=== PATIENT | female | born 1955 | race Caucasian/White ===

== ENCOUNTER → 2018-06-12 10:30 | Outpatient (CLI) | payer MEDICARE, SELFPAY | PROVIDERS: PCP Family Medicine; Visit Provider Psychiatry & Neurology Neurology | DX: G43.909 Migraine, unspecified, not intractable, without status migrainosus (principal) | CPT/HCPCS: 99213 ==

== ENCOUNTER 2018-10-16 08:55 | Outpatient (CLI) | payer MEDICARE, SELFPAY ==
[2018-10-16 11:42] LABS: FREE T4 1.46 ng/dL (0.76-1.46)
[2018-10-16 12:08] LABS: VALPROIC ACID 21.7 ug/mL (50-100)
[2018-10-18 00:05] LABS: Vitamin D 25 Total 48.5 ng/ml (30-100)
== END 2018-10-16 09:15 ==
PROVIDERS: PCP Family Medicine; Visit Provider Family Medicine
DX: G40.909 Epilepsy, unspecified, not intractable, without status epilepticus (principal); Z51.81 Encounter for therapeutic drug level monitoring; E55.9 Vitamin D deficiency, unspecified; F41.9 Anxiety disorder, unspecified
CPT/HCPCS: 36415; 82306; 80164; 84439

== ENCOUNTER → 2018-12-31 08:48 | Outpatient (BNVA) | payer OTHER, SELFPAY | PROVIDERS: PCP Family Medicine; Visit Provider Psychiatry & Neurology Neurology | DX: G43.719 Chronic migraine without aura, intractable, without status migrainosus (principal); R42 Dizziness and giddiness | CPT/HCPCS: 99214 ==

== ENCOUNTER 2019-01-02 09:09 | Outpatient (CLI) | payer OTHER, SELFPAY ==
[2019-01-02 11:06] LABS: Cholesterol 163 mg/dL (50-200); Glucose 147 mg/dL (70-100); HDL Cholesterol 35 mg/dL (40-60); LDL CHOLESTEROL 103 mg/dL (<100); Triglyceride 143 mg/dL (30-150)
== END 2019-01-02 09:29 ==
PROVIDERS: PCP Family Medicine; Visit Provider Family Medicine
DX: E66.3 Overweight (principal); R42 Dizziness and giddiness
CPT/HCPCS: 36415; 80061; 82947; 83721

== ENCOUNTER → 2019-03-11 10:35 | Outpatient (BNVA) | payer OTHER, SELFPAY | PROVIDERS: PCP Family Medicine; Visit Provider Psychiatry & Neurology Neurology | DX: G43.719 Chronic migraine without aura, intractable, without status migrainosus (principal); R42 Dizziness and giddiness; M54.2 Cervicalgia; Z87.820 Personal history of traumatic brain injury | CPT/HCPCS: 99213 ==

== ENCOUNTER 2019-04-04 11:32 | Outpatient (CLI) | payer OTHER, SELFPAY ==
[2019-04-04 13:15] LABS: Hemoglobin A1C 7.3 % (4.5-6.2)
== END 2019-04-04 11:52 ==
PROVIDERS: PCP Family Medicine; Visit Provider Family Medicine
DX: R73.9 Hyperglycemia, unspecified (principal)
CPT/HCPCS: 36415; 83036

== ENCOUNTER → 2019-04-24 12:26 | Outpatient (BNVA) | payer OTHER, SELFPAY | PROVIDERS: PCP Family Medicine; Visit Provider Psychiatry & Neurology Neurology | DX: G43.719 Chronic migraine without aura, intractable, without status migrainosus (principal); R42 Dizziness and giddiness; M54.2 Cervicalgia; Z87.820 Personal history of traumatic brain injury | CPT/HCPCS: 99214 ==

== ENCOUNTER → 2019-04-29 11:12 | Outpatient (BNVA) | payer OTHER, SELFPAY | PROVIDERS: PCP Family Medicine; Visit Provider Nurse Practitioner Adult Health | DX: G43.909 Migraine, unspecified, not intractable, without status migrainosus (principal); G43.109 Migraine with aura, not intractable, without status migrainosus; Z71.89 Other specified counseling | CPT/HCPCS: 99211; 99212 ==

== ENCOUNTER → 2019-05-14 12:18 | Outpatient (BNVA) | payer OTHER, SELFPAY | PROVIDERS: PCP Family Medicine; Visit Provider Psychiatry & Neurology Neurology | DX: G43.901 Migraine, unspecified, not intractable, with status migrainosus (principal) | CPT/HCPCS: 64405 ==

== ENCOUNTER → 2019-06-16 12:25 | Outpatient (BNVA) | payer MEDICARE, SELFPAY | PROVIDERS: PCP Family Medicine; Visit Provider Nurse Practitioner Adult Health | DX: G43.901 Migraine, unspecified, not intractable, with status migrainosus (principal) | CPT/HCPCS: 64405 ==

== ENCOUNTER → 2019-07-03 12:28 | Outpatient (BNVA) | payer MEDICARE, SELFPAY | PROVIDERS: PCP Family Medicine; Visit Provider Psychiatry & Neurology Neurology | DX: G43.719 Chronic migraine without aura, intractable, without status migrainosus (principal); M54.2 Cervicalgia; R42 Dizziness and giddiness; G43.901 Migraine, unspecified, not intractable, with status migrainosus; E11.9 Type 2 diabetes mellitus without complications; Z79.84 Long term (current) use of oral hypoglycemic drugs | CPT/HCPCS: 64405; 99214 ==

== ENCOUNTER → 2019-08-04 12:12 | Outpatient (BNVA) | payer MEDICARE, SELFPAY | PROVIDERS: PCP Family Medicine; Referring Provider Family Medicine; Visit Provider Psychiatry & Neurology Neurology | DX: G43.719 Chronic migraine without aura, intractable, without status migrainosus (principal); M54.2 Cervicalgia; R42 Dizziness and giddiness; M79.671 Pain in right foot; M79.672 Pain in left foot; E11.9 Type 2 diabetes mellitus without complications; Z79.84 Long term (current) use of oral hypoglycemic drugs | CPT/HCPCS: 99214 ==

== ENCOUNTER 2019-08-13 09:13 | Outpatient (CLI) | payer MEDICARE, SELFPAY ==
[2019-08-13 13:20] LABS: Anion Gap 9.7 mmol/L (3-11); CO2 26.3 mmol/L (21.0-32.0); CREATININE 0.94 mg/dL (0.55-1.02); Chloride 105 mmol/L (98-107); Estimated GFR 59.58 (mL/min/1.73m2); Potassium 4.9 mmol/L (3.5-5.1); Sodium 141 mmol/L (136-145)
[2019-08-13 13:22] LABS: Hemoglobin A1C 6.4 % (4.5-6.2)
== END 2019-08-13 09:33 ==
PROVIDERS: PCP Family Medicine; Visit Provider Family Medicine
DX: E11.9 Type 2 diabetes mellitus without complications (principal)
CPT/HCPCS: 36415; 80051; 82565; 83036

== ENCOUNTER 2020-01-06 08:07 | Outpatient (CLI) | payer OTHER, SELFPAY ==
[2020-01-06 12:36] LABS: Abs Immature Grans 0.01 k/cumm (0.0-0.09); Absolute Basophil Count 0.05 k/cumm (0.0-0.2); Absolute Eosinophil Count 0.37 k/cumm (0.0-0.7); Absolute Lymphocyte Count 2.34 k/cumm (1.2-3.4); Absolute Monocyte Count 0.71 k/cumm (0.11-0.7); Absolute Neutrophil Count 5.31 k/cumm (1.2-6.7); Basophils % 0.6; Eosinophils % 4.2; HCT 36.9 % (36.0-46.0); Immature Grans % 0.1 %; Lymphocytes % 26.6; Mean Corp. HGB Concentration 32.5 g/dL (32.0-36.0); Mean Corpuscular Hemoglobin 29.1 pg (27.0-33.0); Mean Corpuscular Volume 89.3 fL (80-95); Mean Platelet Volume 9.9 fL (8.0-11.0); Monocytes % 8.1; Neutrophils % 60.4; Platelet Count 373 x1000/uL (130-400); RBC 4.13 m/cumm (4.00-5.20); RBC Distribution Width 14.2 % (11.7-14.6); White Blood Cell Count 8.79 k/cumm (4.4-10.8)
[2020-01-06 12:45] LABS: COMMENT (LAB VIEW ONLY) 147.39 mg/dL; Microalb ug/mg Crea 4.4 ug/mg Cr
[2020-01-06 12:52] LABS: Hemoglobin A1C 6.4 % (3.8-5.6)
== END 2020-01-06 08:27 ==
PROVIDERS: PCP Family Medicine; Visit Provider Family Medicine
DX: E11.65 Type 2 diabetes mellitus with hyperglycemia (principal); D64.9 Anemia, unspecified
CPT/HCPCS: 36415; 82043; 82570; 83036; 85025

== ENCOUNTER → 2020-02-03 07:35 | Outpatient (BNVA) | payer OTHER, SELFPAY | PROVIDERS: PCP Family Medicine; Referring Provider Family Medicine; Visit Provider Psychiatry & Neurology Neurology | DX: G43.719 Chronic migraine without aura, intractable, without status migrainosus (principal); M54.2 Cervicalgia; R42 Dizziness and giddiness; G43.909 Migraine, unspecified, not intractable, without status migrainosus; E11.9 Type 2 diabetes mellitus without complications | CPT/HCPCS: 99213; 99442 ==

== ENCOUNTER 2020-04-09 11:48 | Outpatient (CLI) | payer OTHER, SELFPAY ==
[2020-04-10 02:44] LABS: COVID-19 RT-PCR UVMMC Result Negative (Negative)
== END 2020-04-09 12:08 ==
PROVIDERS: PCP Family Medicine; Visit Provider Family Medicine
DX: R50.9 Fever, unspecified (principal)
CPT/HCPCS: U0003

== ENCOUNTER → 2020-05-12 13:38 | Outpatient (BNVA) | payer OTHER, SELFPAY | PROVIDERS: PCP Family Medicine; Referring Provider Family Medicine; Visit Provider Psychiatry & Neurology Neurology | DX: G43.719 Chronic migraine without aura, intractable, without status migrainosus (principal); M54.2 Cervicalgia; R42 Dizziness and giddiness | CPT/HCPCS: 99213; 99442 ==

== ENCOUNTER 2020-06-02 04:06 | Outpatient (CLI) | payer OTHER, SELFPAY ==
[2020-06-02 12:58] LABS: TSH (W/Ref FT4) 0.08 uIU/mL (0.36-3.74)
[2020-06-02 13:34] LABS: FREE T4 1.52 ng/dL (0.76-1.46)
== END 2020-06-02 04:26 ==
PROVIDERS: PCP Family Medicine; Visit Provider Family Medicine
DX: E03.9 Hypothyroidism, unspecified (principal)
CPT/HCPCS: 36415; 84439; 84443

== ENCOUNTER → 2020-08-11 09:15 | Outpatient (BNVA) | payer OTHER, SELFPAY | PROVIDERS: PCP Family Medicine; Referring Provider Family Medicine; Visit Provider Psychiatry & Neurology Neurology | DX: G43.719 Chronic migraine without aura, intractable, without status migrainosus (principal); M54.2 Cervicalgia; R42 Dizziness and giddiness | CPT/HCPCS: 99213; 99442 ==

== ENCOUNTER 2020-09-07 17:52 | Outpatient (REF) | payer OTHER, SELFPAY ==
[2020-09-12 13:01] LABS: SARS-CoV-2 RNA Undetected (Undetected); SARS-CoV-2 Specimen Source Nasopharynx
== END 2020-09-07 18:12 ==
LOC: LBN 17:52
PROVIDERS: PCP Family Medicine; Visit Provider Nurse Practitioner Family
DX: R06.02 Shortness of breath (principal); J06.9 Acute upper respiratory infection, unspecified
CPT/HCPCS: 87449; U0003

== ENCOUNTER → 2020-11-10 10:34 | Outpatient (BNVA) | payer OTHER, SELFPAY | PROVIDERS: PCP Family Medicine; Referring Provider Family Medicine; Visit Provider Psychiatry & Neurology Neurology | DX: G43.719 Chronic migraine without aura, intractable, without status migrainosus (principal); M54.2 Cervicalgia; R42 Dizziness and giddiness; Z91.81 History of falling | CPT/HCPCS: 99443 ==

== ENCOUNTER → 2021-01-03 12:18 | Outpatient (BNVA) | payer OTHER, SELFPAY | PROVIDERS: PCP Family Medicine; Referring Provider Family Medicine; Visit Provider Psychiatry & Neurology Neurology | DX: E11.40 Type 2 diabetes mellitus with diabetic neuropathy, unspecified (principal); G43.719 Chronic migraine without aura, intractable, without status migrainosus; M54.2 Cervicalgia; R42 Dizziness and giddiness | CPT/HCPCS: 99215 ==

== ENCOUNTER 2021-01-07 01:41 | Outpatient (CLI) | payer OTHER, SELFPAY ==
[2021-01-07 13:21] LABS: Hemoglobin A1C 6.5 % (<5.7)
[2021-01-07 13:23] LABS: FREE T4 1.74 ng/dL (0.76-1.46)
[2021-01-07 13:24] LABS: Vitamin B12 643 pg/mL (193-986)
[2021-01-10 12:46] LABS: Albumin 55.7 % (55.8-66.1); Total Protein 6.9 g/dL (6.3-8.2)
== END 2021-01-07 01:42 | disposition home or self-care (01) ==
LOC: LOS 01:41
PROVIDERS: Psychiatry & Neurology Neurology; PCP Family Medicine; Visit Provider Family Medicine
DX: E03.9 Hypothyroidism, unspecified (principal); G62.9 Polyneuropathy, unspecified; R73.09 Other abnormal glucose
CPT/HCPCS: 36415; 82607; 83036; 84165; 84439; 84443

== ENCOUNTER → 2021-03-07 07:49 | Outpatient (BNVA) | payer OTHER, SELFPAY | PROVIDERS: PCP Family Medicine; Referring Provider Family Medicine; Visit Provider Psychiatry & Neurology Neurology | DX: G62.9 Polyneuropathy, unspecified (principal); E11.40 Type 2 diabetes mellitus with diabetic neuropathy, unspecified; G43.719 Chronic migraine without aura, intractable, without status migrainosus; M54.2 Cervicalgia; R42 Dizziness and giddiness | CPT/HCPCS: 99443 ==

== ENCOUNTER 2021-06-29 13:26 | Outpatient (REF) | payer OTHER, SELFPAY ==
[2021-06-30 15:49] LABS: COVID-19 RT-PCR UVMMC Result Negative (Negative)
== END 2021-06-29 13:27 | disposition home or self-care (01) ==
LOC: LBN 13:26
PROVIDERS: PCP Family Medicine; Visit Provider Family Medicine
DX: Z20.822 Contact with and (suspected) exposure to COVID-19 (principal)
CPT/HCPCS: U0003

== ENCOUNTER 2021-07-05 04:27 | Outpatient (CLI) | payer OTHER, SELFPAY ==
[2021-07-05 12:46] LABS: Hemoglobin A1C 6.9 % (<5.7)
[2021-07-05 13:13] LABS: Anion Gap 10.7 mmol/L (3-11); BUN 26 mg/dL (7-18); CO2 26.3 mmol/L (21.0-32.0); Calcium 9.4 mg/dL (8.5-10.1); Calculated LDL 88 mg/dL (<100); Chloride 103 mmol/L (98-107); Cholesterol 159 mg/dL (<200); Estimated GFR 55.14 (mL/min/1.73m2); Glucose 133 mg/dL (74-106); HDL Cholesterol 35 mg/dL (40-60); Potassium 4.6 mmol/L (3.5-5.1); Sodium 140 mmol/L (136-145); TSH (W/Ref FT4) 0.13 uIU/mL (0.36-3.74); Triglyceride 182 mg/dL (<150)
[2021-07-05 13:39] LABS: FREE T4 1.55 ng/dL (0.76-1.46)
[2021-07-06 11:17] LABS: Lyme Ab w Rflx to Lyme Confirm Negative (Negative)
== END 2021-07-05 04:28 | disposition home or self-care (01) ==
LOC: LOS 04:28
PROVIDERS: PCP Family Medicine; Visit Provider Family Medicine
DX: E78.5 Hyperlipidemia, unspecified (principal); E11.9 Type 2 diabetes mellitus without complications; E03.9 Hypothyroidism, unspecified; E87.1 Hypo-osmolality and hyponatremia; W57.XXXA Bitten or stung by nonvenomous insect and other nonvenomous arthropods, initial encounter; T14.8XXA Other injury of unspecified body region, initial encounter
CPT/HCPCS: 36415; 80048; 80061; 83036; 84439; 84443; 86618

== ENCOUNTER → 2021-08-03 10:45 | Outpatient (BNVA) | payer OTHER, SELFPAY | PROVIDERS: PCP Family Medicine; Referring Provider Family Medicine; Visit Provider Psychiatry & Neurology Neurology | DX: E11.40 Type 2 diabetes mellitus with diabetic neuropathy, unspecified (principal); M54.2 Cervicalgia; R42 Dizziness and giddiness; G43.719 Chronic migraine without aura, intractable, without status migrainosus | CPT/HCPCS: 99213; 99443 ==

== ENCOUNTER → 2021-12-15 10:08 | Outpatient (BNVA) | payer MEDICARE, SELFPAY | PROVIDERS: PCP Family Medicine; Referring Provider Family Medicine; Visit Provider Psychiatry & Neurology Neurology | DX: G43.719 Chronic migraine without aura, intractable, without status migrainosus (principal); E11.9 Type 2 diabetes mellitus without complications; G62.9 Polyneuropathy, unspecified | CPT/HCPCS: 99443 ==

== ENCOUNTER 2022-01-19 03:30 | Outpatient (CLI) | payer MEDICARE, SELFPAY | END 2022-01-19 03:31 | disposition home or self-care (01) | LOC: LBO 03:30 | PROVIDERS: PCP Family Medicine; Visit Provider Family Medicine ==

== ENCOUNTER 2022-04-17 09:17 | Outpatient (CLI) | payer MEDICARE, SELFPAY ==
[2022-04-17 10:03] LABS: TSH (W/Ref FT4) 0.45 uIU/mL (0.36-3.74)
== END 2022-04-17 09:18 | disposition home or self-care (01) ==
LOC: LBO 09:20
PROVIDERS: PCP Family Medicine; Visit Provider Family Medicine
DX: E03.9 Hypothyroidism, unspecified (principal)
CPT/HCPCS: 36415; 84443

== ENCOUNTER → 2022-04-24 10:52 | Outpatient (BNVA) | payer MEDICARE, MEDICAID, SELFPAY | PROVIDERS: PCP Family Medicine; Referring Provider Family Medicine; Visit Provider Psychiatry & Neurology Neurology | DX: G43.719 Chronic migraine without aura, intractable, without status migrainosus (principal); F41.9 Anxiety disorder, unspecified; R42 Dizziness and giddiness; G62.9 Polyneuropathy, unspecified; M54.2 Cervicalgia; G89.29 Other chronic pain; E11.9 Type 2 diabetes mellitus without complications | CPT/HCPCS: 99215 ==

== ENCOUNTER → 2022-06-07 09:07 | Outpatient (BNVA) | payer MEDICARE, MEDICAID, SELFPAY | PROVIDERS: PCP Family Medicine; Referring Provider Family Medicine; Visit Provider Psychiatry & Neurology Neurology | DX: Z87.820 Personal history of traumatic brain injury (principal); F39 Unspecified mood [affective] disorder; G47.00 Insomnia, unspecified; G43.719 Chronic migraine without aura, intractable, without status migrainosus; E11.40 Type 2 diabetes mellitus with diabetic neuropathy, unspecified; R25.1 Tremor, unspecified | CPT/HCPCS: 99214 ==

== ENCOUNTER 2022-08-23 21:52 | Outpatient (REF) | payer MEDICARE, MEDICAID, SELFPAY ==
[2022-08-23 22:18] LABS: COMMENT (LAB VIEW ONLY) 153.74 mg/dL; Microalb ug/mg Crea 3.5 ug/mg Cr
== END 2022-08-23 21:53 | disposition home or self-care (01) ==
LOC: LBN 21:52
PROVIDERS: PCP Family Medicine; Visit Provider Family Medicine
DX: E11.9 Type 2 diabetes mellitus without complications (principal)
CPT/HCPCS: 82043; 82570

== ENCOUNTER 2022-09-29 02:45 | Outpatient (CLI) | payer MEDICARE, SELFPAY ==
[2022-09-29 16:32] LABS: TSH (W/Ref FT4) 2.68 uIU/mL (0.36-3.74)
== END 2022-09-29 02:46 | disposition home or self-care (01) ==
LOC: LBO 02:45
PROVIDERS: PCP Family Medicine; Visit Provider Family Medicine
DX: E03.9 Hypothyroidism, unspecified (principal)
CPT/HCPCS: 36415; 84443

== ENCOUNTER → 2022-11-21 10:40 | Outpatient (BNVA) | payer MEDICARE, SELFPAY | PROVIDERS: PCP Family Medicine; Referring Provider Family Medicine; Visit Provider Psychiatry & Neurology Neurology | DX: R42 Dizziness and giddiness (principal); Z87.820 Personal history of traumatic brain injury; F41.9 Anxiety disorder, unspecified; G47.00 Insomnia, unspecified; G43.719 Chronic migraine without aura, intractable, without status migrainosus; E11.40 Type 2 diabetes mellitus with diabetic neuropathy, unspecified; R25.1 Tremor, unspecified | CPT/HCPCS: 99214 ==

== ENCOUNTER 2023-02-02 02:05 | Outpatient (CLI) | payer MEDICARE, SELFPAY ==
[2023-02-02 12:31] LABS: Calculated LDL 104 mg/dL (<100); Cholesterol 168 mg/dL (<200); HDL Cholesterol 38 mg/dL (40-60); TSH (W/Ref FT4) 1.73 uIU/mL (0.36-3.74); Triglyceride 130 mg/dL (<150)
[2023-02-02 12:41] LABS: Hemoglobin A1C 6.5 % (<5.7)
== END 2023-02-02 02:06 | disposition home or self-care (01) ==
LOC: LOS 02:05
PROVIDERS: PCP Family Medicine; Visit Provider Family Medicine
DX: E78.5 Hyperlipidemia, unspecified (principal); E11.9 Type 2 diabetes mellitus without complications; E03.9 Hypothyroidism, unspecified
CPT/HCPCS: 36415; 80061; 83036; 84443

== ENCOUNTER → 2023-02-26 10:24 | Outpatient (BNVA) | payer MEDICARE, SELFPAY | PROVIDERS: PCP Family Medicine; Referring Provider Family Medicine; Visit Provider Psychiatry & Neurology Neurology | DX: G43.719 Chronic migraine without aura, intractable, without status migrainosus (principal); Z87.820 Personal history of traumatic brain injury; E11.42 Type 2 diabetes mellitus with diabetic polyneuropathy; R25.1 Tremor, unspecified | CPT/HCPCS: 99214 ==

== ENCOUNTER 2023-03-01 01:39 | Outpatient (CLI) | payer MEDICARE, SELFPAY ==
[2023-03-01 10:17] LABS: Anion Gap 9.3 mmol/L (3-11); BUN 19 mg/dL (7-18); CO2 25.7 mmol/L (21.0-32.0); CREATININE 1.4 mg/dL (0.55-1.02); Calcium 9.4 mg/dL (8.5-10.1); Chloride 105 mmol/L (98-107); Estimated GFR 40.47 (mL/min/1.73m2); Glucose 214 mg/dL (74-106); Potassium 3.8 mmol/L (3.5-5.1); Sodium 140 mmol/L (136-145)
== END 2023-03-01 01:40 | disposition home or self-care (01) ==
LOC: LBO 01:39
PROVIDERS: PCP Family Medicine; Visit Provider Family Medicine
DX: E87.1 Hypo-osmolality and hyponatremia (principal); E78.5 Hyperlipidemia, unspecified; E03.9 Hypothyroidism, unspecified
CPT/HCPCS: 36415; 80048

== ENCOUNTER → 2023-06-05 09:59 | Outpatient (BNVA) | payer MEDICARE, SELFPAY | PROVIDERS: PCP Family Medicine; Referring Provider Family Medicine; Visit Provider Psychiatry & Neurology Neurology | DX: G43.719 Chronic migraine without aura, intractable, without status migrainosus (principal); E11.42 Type 2 diabetes mellitus with diabetic polyneuropathy; R25.1 Tremor, unspecified | CPT/HCPCS: 99214 ==

== ENCOUNTER 2023-06-22 15:28 | Outpatient (CLI) | payer MEDICARE, SELFPAY ==
[2023-06-22 16:00] LABS: AST 12 U/L (15-37); CREATININE 1.1 mg/dL (0.55-1.02); Calculated LDL 45 mg/dL (<100); Cholesterol 107 mg/dL (<200); Estimated GFR 54.06 (mL/min/1.73m2); HDL Cholesterol 33 mg/dL (40-60); Triglyceride 145 mg/dL (<150)
== END 2023-06-22 15:29 | disposition home or self-care (01) ==
LOC: LBO 15:32
PROVIDERS: Registered Nurse Maternal Newborn; PCP Family Medicine; Visit Provider Family Medicine
DX: E78.5 Hyperlipidemia, unspecified (principal); K76.0 Fatty (change of) liver, not elsewhere classified; R13.10 Dysphagia, unspecified
CPT/HCPCS: 36415; 80061; 82565; 84450

== ENCOUNTER → 2023-10-31 10:00 | Outpatient (BNVA) | payer MEDICARE, SELFPAY | PROVIDERS: PCP Family Medicine; Referring Provider Family Medicine; Visit Provider Psychiatry & Neurology Neurology | DX: F41.9 Anxiety disorder, unspecified (principal); G25.0 Essential tremor; E11.40 Type 2 diabetes mellitus with diabetic neuropathy, unspecified; G43.719 Chronic migraine without aura, intractable, without status migrainosus | CPT/HCPCS: 99214 ==

== ENCOUNTER → 2023-11-26 02:45 | Outpatient (CLI) | payer MEDICARE, SELFPAY ==
--- NOTE | 2023-11-26 07:15 | DI.RAD_ITS ---
Exam(s) RF MODIFIED SPEECH BA SWALLOW TECHNIQUE: Modified barium swallow was performed in conjunction with speech pathology. CONTRAST MATERIAL: Oral barium contrast was administered. COMPARISON: No exams were available for comparison FINDINGS: Note that this is not a dedicated esophagram, distal esophagus not evaluated. The examination was performed with thin liquids, barium pudding and barium on a cracker. There was p enetration noted during the examination with thin liquid but no aspiration was seen. Speech patholog y report to follow. . . . IMPRESSION: Penetration was seen with thin liquids. No aspiration. RADIATION DOSE DELIVERED: jian Castrejon=4.87 mGy
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
[2023-11-26] MEDS: Barium Sulfate Oral Paste 40% W/V 230 ML TUBE PO (09:55)
[2023-11-26] MEDS: Barium Sulfate 81% w/w for Oral Suspension 148 GM BTL PO (09:56)
== END ==
PROVIDERS: PCP Family Medicine; Visit Provider Registered Nurse Maternal Newborn
DX: R13.12 Dysphagia, oropharyngeal phase (principal)
CPT/HCPCS: 92526; 92611; 74221

== ENCOUNTER → 2024-05-07 10:07 | Outpatient (BNVA) | payer OTHER, SELFPAY | PROVIDERS: Visit Provider Psychiatry & Neurology Neurology | DX: F41.9 Anxiety disorder, unspecified (principal); E11.9 Type 2 diabetes mellitus without complications; G43.719 Chronic migraine without aura, intractable, without status migrainosus; G25.0 Essential tremor; E11.40 Type 2 diabetes mellitus with diabetic neuropathy, unspecified | CPT/HCPCS: 99214 ==

== ENCOUNTER 2024-07-08 02:25 | Outpatient (CLI) | payer OTHER, MEDICARE, SELFPAY ==
[2024-07-08 10:01] LABS: HGB 12.4 g/dL (11.2-15.7)
[2024-07-08 10:20] LABS: Hemoglobin A1C 5.7 % (<5.7)
[2024-07-08 10:22] LABS: ALT 24 U/L (14-59); AST 14 U/L (15-37); Albumin 3.9 g/dL (3.4-5.0); Alkaline Phosphatase 72 U/L (46-116); Anion Gap 9.4 mmol/L (3-11); BUN 23 mg/dL (7-18); Bilirubin, Total 0.51 mg/dL (0.2-1.0); CO2 26.6 mmol/L (21.0-32.0); CREATININE 1.2 mg/dL (0.55-1.02); Calcium 9.2 mg/dL (8.5-10.1); Calculated LDL 59 mg/dL (<100); Chloride 104 mmol/L (98-107); Cholesterol 121 mg/dL (<200); Estimated GFR 48.39 (mL/min/1.73m2); Glucose 99 mg/dL (74-106); HDL Cholesterol 47 mg/dL (40-60); Potassium 4.3 mmol/L (3.5-5.1); Sodium 140 mmol/L (136-145); TSH (W/Ref FT4) 0.38 uIU/mL (0.36-3.74); Total Protein 7.8 g/dL (6.4-8.2); Triglyceride 78 mg/dL (<150)
[2024-07-12 00:12] LABS: Lab Add On Test DONE
[2024-07-12 00:28] LABS: FREE T4 1.38 ng/dL (0.76-1.46)
== END 2024-07-08 02:26 | disposition home or self-care (01) ==
LOC: LBO 02:25
PROVIDERS: PCP Student in an Organized Health Care Education/Training Program; Referring Provider Student in an Organized Health Care Education/Training Program; Visit Provider Student in an Organized Health Care Education/Training Program
DX: N18.30 Chronic kidney disease, stage 3 unspecified (principal); E11.9 Type 2 diabetes mellitus without complications; E16.2 Hypoglycemia, unspecified; E03.9 Hypothyroidism, unspecified; Z13.220 Encounter for screening for lipoid disorders
CPT/HCPCS: 36415; 80053; 80061; 83036; 84439; 84443; 85018

== ENCOUNTER 2024-08-22 01:29 | Outpatient (CLI) | payer OTHER, MEDICARE, SELFPAY | END 2024-08-22 01:30 | disposition home or self-care (01) | LOC: LBO 01:30 | PROVIDERS: PCP Student in an Organized Health Care Education/Training Program; Referring Provider Student in an Organized Health Care Education/Training Program; Visit Provider Student in an Organized Health Care Education/Training Program | DX: R79.89 Other specified abnormal findings of blood chemistry (principal); E03.9 Hypothyroidism, unspecified | CPT/HCPCS: 36415; 84443 ==

== ENCOUNTER 2024-12-02 00:47 | Outpatient (CLI) | payer MEDICARE, SELFPAY ==
[2024-12-02 12:04] LABS: Anion Gap 9.8 mmol/L (3-11); BUN 18 mg/dL (7-18); CO2 29.2 mmol/L (21.0-32.0); CREATININE 1.6 mg/dL (0.55-1.02); Calcium 9.5 mg/dL (8.5-10.1); Chloride 104 mmol/L (98-107); Estimated GFR 34.27 (mL/min/1.73m2); Glucose 72 mg/dL (74-106); Potassium 4.2 mmol/L (3.5-5.1); Sodium 143 mmol/L (136-145); TSH (W/Ref FT4) 37.07 uIU/mL (0.36-3.74)
[2024-12-02 12:42] LABS: FREE T4 0.55 ng/dL (0.76-1.46)
== END 2024-12-02 00:48 | disposition home or self-care (01) ==
PROVIDERS: PCP Nurse Practitioner Family; Visit Provider Student in an Organized Health Care Education/Training Program
DX: I10 Essential (primary) hypertension (principal); R79.89 Other specified abnormal findings of blood chemistry; E03.9 Hypothyroidism, unspecified
CPT/HCPCS: 36415; 80048; 84439; 84443

== ENCOUNTER 2024-12-09 02:37 | Outpatient (CLI) | payer MEDICARE, SELFPAY ==
--- NOTE | 2024-12-09 07:00 | DI.RAD_ITS ---
Exam(s) XR FOOT RT COMPLETE EXAM: XR FOOT RT COMPLETE CLINICAL HISTORY: HX injury-distant, and surgery lateral 5th metatarsal,rt foot pain,[id number]. TECHNIQUE: 2D digital imaging was performed. COMPARISON: No exams were available for comparison FINDINGS: 3 views There is dorsal soft tissue swelling over the metatarsals but no evidence of acute fracture or diasta sis of the Lisfranc joint. No pes planus. There is mild hallux valgus. Also some degenerative ríos ge noted at the 2nd tarsometatarsal joint. There is a small erosion on the lateral aspect of the bas e of the 5th metatarsal noted. No adjacent soft tissue densities. IMPRESSION: No acute fractures. Notch evident on the lateral aspect of the base of the 5th metatarsal may be rel ated to prior surgery as per history. DATA REPOSITORY: RADIATION DOSE DELIVERED:
== END 2024-12-09 02:57 ==
LOC: DI 02:37
PROVIDERS: PCP Nurse Practitioner Family; Visit Provider Nurse Practitioner Family
DX: M79.671 Pain in right foot (principal)
CPT/HCPCS: 73630

== ENCOUNTER 2025-01-14 03:54 | Outpatient (CLI) | payer MEDICARE, SELFPAY ==
[2025-01-14 11:33] LABS: TSH (W/Ref FT4) 0.85 uIU/mL (0.36-3.74)
== END 2025-01-14 03:55 | disposition home or self-care (01) ==
LOC: LBO 03:54
PROVIDERS: PCP Nurse Practitioner Family; Referring Provider Nurse Practitioner Family; Visit Provider Nurse Practitioner Family
DX: R79.89 Other specified abnormal findings of blood chemistry (principal); E03.9 Hypothyroidism, unspecified
CPT/HCPCS: 36415; 84443

== ENCOUNTER → 2025-01-15 13:47 | Outpatient (BNVA) | payer MEDICARE, SELFPAY | PROVIDERS: PCP Nurse Practitioner Family; Referring Provider Nurse Practitioner Family; Visit Provider Podiatrist | DX: M20.41 Other hammer toe(s) (acquired), right foot (principal); L84 Corns and callosities; S90.31XA Contusion of right foot, initial encounter; W20.8XXA Other cause of strike by thrown, projected or falling object, initial encounter | CPT/HCPCS: 99203 ==

== ENCOUNTER 2025-03-02 09:23 | Outpatient (CLI) | payer MEDICARE, SELFPAY ==
[2025-03-02 07:52] LABS: Abs Immature Grans 0.01 10^3/uL (0.0-0.06); Absolute Basophil Count 0.04 10^3/uL (0.0-0.2); Absolute Eosinophil Count 0.56 10^3/uL (0.0-0.7); Absolute Lymphocyte Count 1.41 10^3/uL (1.2-3.4); Absolute Monocyte Count 0.53 10^3/uL (0.1-0.8); Absolute Neutrophil Count 5.24 10^3/uL (1.2-6.7); Basophils % 0.5 %; ESR 17 mm/hr (0-30); Eosinophils % 7.2 %; HCT 37.3 % (36.0-46.0); HGB 12.2 g/dL (11.2-15.7); Immature Grans % 0.1 %; Lymphocytes % 18.1 %; MCH 30.3 pg (27.0-33.0); MCHC 32.7 % (32.0-36.0); MCV 93 fL (80-95); MPV 9.4 fL (8.0-11.0); Monocytes % 6.8 %; Neutrophils % 67.3 %; Platelet Count 256 10^3/uL (130-400); RBC 4.02 10^6/uL (3.93-5.22); RDW-SD 44.4 fL; WBC 7.79 10^3/uL (4.4-10.8)
[2025-03-02 08:05] LABS: Hemoglobin A1C 5.7 % (<5.7)
[2025-03-02 09:39] LABS: C-Reactive Protein < 0.50 mg/dL (<or=0.5)
== END 2025-03-02 09:24 | disposition home or self-care (01) ==
LOC: LBO 09:23
PROVIDERS: PCP Nurse Practitioner Family; Visit Provider Nurse Practitioner Family
DX: R61 Generalized hyperhidrosis (principal); E11.9 Type 2 diabetes mellitus without complications
CPT/HCPCS: 36415; 85652; 83036; 85025; 86140

== ENCOUNTER 2025-06-30 15:53 | Outpatient (CLI) | payer MEDICARE, SELFPAY ==
[2025-06-30 12:38] LABS: TSH (W/Ref FT4) 0.10 uIU/mL (0.36-3.74)
== END 2025-06-30 15:54 | disposition home or self-care (01) ==
LOC: LBO 15:53
PROVIDERS: PCP Nurse Practitioner Family; Visit Provider Nurse Practitioner Family
DX: E03.9 Hypothyroidism, unspecified (principal)
CPT/HCPCS: 36415; 84439; 84443

== ENCOUNTER → 2025-07-02 10:42 | Outpatient (BNVA) | payer MEDICARE, SELFPAY | PROVIDERS: PCP Nurse Practitioner Family; Referring Provider Nurse Practitioner Family; Visit Provider Psychiatry & Neurology Neurology | DX: G25.0 Essential tremor (principal); G43.719 Chronic migraine without aura, intractable, without status migrainosus; E11.40 Type 2 diabetes mellitus with diabetic neuropathy, unspecified; R41.3 Other amnesia; J45.909 Unspecified asthma, uncomplicated | CPT/HCPCS: 99214 ==

== ENCOUNTER 2025-07-28 14:06 | Outpatient (CLI) | payer MEDICARE, SELFPAY ==
--- NOTE | 2025-07-28 11:30 | DI.RAD_ITS ---
Exam(s) XR RIBS RT PA CHEST 3V CLINICAL HISTORY: pain after fall on right side R07.89 CHEST PAIN. COMPARISON: CR LEFT RIBS TO INCLUDE CXR from 01/29/2015 TECHNIQUE:: PA and lateral views of the chest and four views of the right ribs were performed. FINDINGS: LUNGS:Clear. No pleural abnormality seen. HEART: Normal size. MEDIASTINUM: Normal. BONES: There is a question of nondisplaced fractures of the right 4th and 5th ribs seen on one of the oblique views. No bony destructive lesion is seen. IMPRESSION: 1. Question nondisplaced fractures of the right 4th and 5th ribs. 2. No acute pulmonary findings.
== END 2025-07-28 14:26 ==
LOC: DI 08-28 14:06
PROVIDERS: PCP Nurse Practitioner Family; Visit Provider Nurse Practitioner Family
DX: R07.89 Other chest pain (principal); R93.89 Abnormal findings on diagnostic imaging of other specified body structures
CPT/HCPCS: 71046; 71100